=== PATIENT | male | born 1985 | race Caucasian/White ===

== ENCOUNTER 2016-11-27 11:18 | Emergency (ER) | payer OTHER ==
--- NOTE | 2016-11-27 12:00 | EDPHY ---
H & P Time Seen by Provider: 11/27/16 11:28 HPI/ROS: CHIEF COMPLAINT: Right index finger injury HISTORY OF PRESENT ILLNESS: 31-year-old male presents to the emergency department with injury to the right index finger. Patient was working outside and accidentally cut his right index finger with a knife while cutting 20 from a tree. The incident happened just prior to arrival. He is left-hand dominant. He believes his tetanus shot is current. He denies any other trauma or injury. ROS: Denies numbness or tingling in his fingers, retained foreign body. Past Medical/Surgical History: Negative Social History: Single Smoking Status: Current every day smoker Physical Exam: On examination the patient has a deep 1 cm x 1.5 cm skin avulsion to the dorsal aspect of the right index finger overlying PIP joint. There is active bleeding noted. There is small amount of debris noted. Normal sensation to light touch with normal 2 point discrimination. Full flexion and extension of his fingers without difficulty. The other fingers appear uninjured. Constitutional: Initial Vital Signs Temperature (C) 36.9 C 11/27/16 11:25 Heart Rate 67 11/27/16 11:25 Respiratory Rate 18 11/27/16 11:25 Blood Pressure 123/65 H 11/27/16 11:25 O2 Sat (%) 99 11/27/16 11:25 O2 Delivery Mode Room Air Allergies/Adverse Reactions: penicillin G Allergy (Verified 11/27/16 11:23) Home Medications: Medication Instructions Recorded oxyCODONE/APAP 5/325 [Percocet 1 - 2 tab PO Q4-6PRN PRN #15 tab 11/27/16 5/325] MDM/Departure - MDM Diagnostics: X-rays of the right index finger reveal no fractures. This is reviewed by myself the PAC system as well as by the radiologist. Procedures: Verbal consent was obtained from the patient. The 1 cm skin avulsion on the dorsal aspect of the right 2nd finger overlying PIP joint was anesthetized using digital block using 1% lidocaine without epinephrine 0.5% bupivacaine without epinephrine. The wound was irrigated with saline, draped and explored to its base with a gloved finger. There were no deep structures involved. No tendon injury was identified. No sutures placed. Surgical foam, tube gauze and splint were applied. The procedure was performed by myself. ED Course/Re-evaluation: 31-year-old male presents to the emergency department with skin avulsion to the right index finger. I did discuss the options of sutures with the patient, however there is a skin avulsion noted. The bleeding was controlled surgical foam. He was placed in tube gauze as and [place] splint to minimize flexion and help to minimize recurring bleeding. Instructed to return if he noted any signs or symptoms of infection or any other concerns. - Depart Disposition: Home, Routine, Self-Care Clinical Impression: Skin avulsion right index finger Condition: Good Instructions: Skin Avulsion (ED), Acute Wounds (ED) Additional Instructions: Keep dressing on for 48 hours. Try to minimize flexion to avoid causing the wound debris bleed. Ibuprofen 600 mg every 8 hours as needed for pain. Percocet for severe pain as directed. Return if you notice recurring bleeding, any signs or symptoms of infection such as redness, swelling, increased pain, fever, purulent drainage. Prescriptions: oxyCODONE/APAP 5/325 [Percocet 5/325] 1 - 2 tab PO Q4-6PRN PRN #15 tab PRN Reason: For Moderate To Severe Pain Referrals: Remi Monroy MD [Medical Doctor] - 3-4 days, if not improved (Hand surgeon on- call)
[2016-11-27 13:46] VITALS: BP 126/78; PULSE 58; RESP 16; TEMP 97.9; O2SAT 94
== END 2016-11-27 13:46 | disposition home or self-care (01) ==
LOC: MERGE 11:18
PROC: 3E0T3BZ Introduction of Anesthetic Agent into Peripheral Nerves and Plexi, Percutaneous Approach (ICD-10-PCS; principal; 2016-11-27)
DX: S61.200A Unspecified open wound of right index finger without damage to nail, initial encounter (principal); F17.200 Nicotine dependence, unspecified, uncomplicated; W26.0XXA Contact with knife, initial encounter; Y93.89 Activity, other specified

== ENCOUNTER 2017-07-14 23:14 | Emergency (ER) | payer OTHER ==
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
[2017-07-14 23:25] VITALS: BP 143/83; PULSE 106; RESP 16; TEMP 98.8; O2SAT 98
== END 2017-07-14 23:37 | disposition home or self-care (01) ==
DX: Z04.1 Encounter for examination and observation following transport accident (principal); F17.200 Nicotine dependence, unspecified, uncomplicated; V49.49XA Driver injured in collision with other motor vehicles in traffic accident, initial encounter; Y92.410 Unspecified street and highway as the place of occurrence of the external cause; Y99.8 Other external cause status